=== PATIENT | male | born 1950 | race Caucasian/White ===

== ENCOUNTER → 2016-07-17 | Day surgery (SDC) | payer MEDICARE ==
[~2016-07-17] MED LIST: Lactated Ringers 1,000 ML IV SCH; Propofol 200 MG/20 ML SDV IV ONE
[2016-07-17 10:10] VITALS: BP 109/72
--- NOTE | 2016-07-20 07:17 | OR ---
DATE OF OPERATION: 07/17/2016 PREOPERATIVE DIAGNOSIS: SCREENING COLONOSCOPY. POSTOPERATIVE DIAGNOSIS: SCREENING COLONOSCOPY. SURGEON: Benigno Roberts MD PROCEDURE: FULL-LENGTH COLONOSCOPY. ANESTHESIA: COMMERCIAL PLUMBER. COMPLICATIONS: None. SPECIMEN: None. FINDINGS: Normal full-length colonoscopy. RECOMMENDATIONS: Routine colonoscopy every 5 years as apparently the patient's father had a history of colon cancer. INDICATIONS: The patient never had a prior colonoscopy or a screen. We recommended the procedure given his age. DESCRIPTION OF PROCEDURE: The patient's prepped and draped, placed in the left lateral decubitus position. A lubricated Olympus colonoscope was inserted and safely and easily advanced to the cecum and direct visualization of the ileocecal valve and appendiceal orifice. The bowel prep was excellent. Upon withdrawal of the scope, the entire length of the colon was evaluated thoroughly. There were no signs of any polyps, masses, ulcerations, or bleeding sites. No vascular abnormalities or signs of colitis. No diverticular disease seen. The rectal vault was unremarkable. Retroflexion of the scope showed a lot of perianal hemorrhoidal tissue, but no active bleeding. Air was then suctioned. The scope removed without complication. GABRIELA/GERA /[id number]
== END ==
LOC: CC.SDS 08:22
PROVIDERS: ATTEND Family Medicine
DX: Z12.11 Encounter for screening for malignant neoplasm of colon (principal); I10 Essential (primary) hypertension; Z79.899 Other long term (current) drug therapy
CPT/HCPCS: G0121; J2704; J7120; 00810

== ENCOUNTER → 2018-02-03 | Day surgery (SDC) | payer MEDICARE ==
[~2018-02-03] MED LIST changes: +Bupivacaine 0.25% 10 ML SDV ONE; +Midazolam 1 MG/ML 2 ML SDV IV ONE; +ceFAZolin 1 GM Vial IVPUSH ONE; +fentaNYL 100 MCG/2 ML SDV IV ONE
[2018-02-03 14:42] VITALS: BP 91/63
--- NOTE | 2018-02-03 15:31 | OR ---
DATE OF OPERATION: 02/03/2018 PREOPERATIVE DIAGNOSIS: INFECTED SEBACEOUS CYST, LEFT GROIN. POSTOPERATIVE DIAGNOSIS: INFECTED SEBACEOUS CYST, LEFT GROIN. SURGEON: Ihsan Rubin MD PROCEDURE: WIDE LOCAL EXCISION OF INFECTED SEBACEOUS CYST, LEFT GROIN. ANESTHESIA: Local MAC. SPECIMEN: Cyst. INDICATIONS: This 67-year-old male has a chronically draining cyst in the left groin, was consistent with a sebaceous cyst. However, it is currently mostly drained and would be proper to excise this in total than just incise and drain it. This measures about 1.5 cm in diameter. DESCRIPTION OF PROCEDURE: After adequate preparation, local anesthesia was used to numb the area around the cyst. An elliptical incision was made and carried down through the subcutaneous tissue to completely excise the lateral and deep margins of the cyst. This was completely excised. The wound was then closed with Vicryl for the deep layer and 4-0 Vicryl for the skin. KARLI/GERA /[id number]
== END ==
LOC: CC.SDS 10:56
PROVIDERS: ATTEND Surgery
DX: L72.0 Epidermal cyst (principal); Z87.891 Personal history of nicotine dependence
CPT/HCPCS: J0690; J2250; J2704; J3010; J7120

== ENCOUNTER 2020-10-02 10:17 | Emergency (ER) | payer MEDICARE, OTHER ==
[2020-10-02] MEDS ORDERED: Lidocaine 1% 30 ML SDV INJECT STA (10:27)
[2020-10-02 10:34] VITALS: BP 123/89; PULSE 73
[2020-10-02] MEDS ORDERED: Bacitracin/Neomycin/Polymyxin B Oint 28.4 GM Tube TOP ONE (10:53)
[2020-10-02] MEDS ORDERED: Diphtheria,Pertussis(Acell),Tetanus Vaccine 0.5 ML Syringe IM ONE (10:57)
--- NOTE | 2020-10-02 10:57 | EDM.PDOC ---
ED HPI GENERAL MEDICAL PROBLEM - General Chief Complaint: General Stated Complaint: finger injury Time Seen by Provider: 10/02/20 10:30 Source of Information: Reports: Patient History Limitations: Reports: No Limitations - History of Present Illness INITIAL COMMENTS - FREE TEXT/NARRATIVE: Patient presents today with an injury to his left index finger. [place] his hand pinched [place] 2 [place] of equipment [place]. Admits to good range of motion but has a laceration to the distal tip near the nail bed. Bleeding contained with a bandage. Last tetanus greater than 7 years Onset: Today, Sudden Duration: Hour(s): Location: Reports: Upper Extremity, Left Quality: Reports: Ache Severity: Mild Associated Symptoms: Reports: No Other Symptoms Treatments LABEL STITCHER: Reports: Dressing(s) - Related Data Allergies Allergy/AdvReac Type Severity Reaction Status Date / Time No Known Allergies Allergy Verified 10/02/20 10:18 Home Meds: Home Meds Acetaminophen [Tylenol Arthritis Pain] 2 tab PO DAILY PRN 07/16/16 [History] Lisinopril 20 mg PO DAILY 07/16/16 [History] Lysine HCl [l-Lysine] 1,000 mg PO DAILY 07/16/16 [History] Past Medical History Cardiovascular History: Reports: Hypertension Social & Family History - Family History Family Medical History: No Pertinent Family History - Tobacco Use Tobacco Use Status *Q: Never Tobacco User - Caffeine Use Caffeine Use: Reports: Coffee ED ROS GENERAL - Review of Systems Review Of Systems: Comprehensive ROS is negative, except as noted in HPI. ED EXAM, GENERAL - Physical Exam Exam: See Below Exam Limited By: No Limitations General Appearance: Alert, WD/WN, No Apparent Distress Extremities: Normal Range of Motion Neurological: Alert, Oriented Skin Exam: Wound/Incision ED GENERAL MEDICAL PROCEDURES - Laceration/Wound Repair Left Digit - 3rd (Middle) Lac/wound length in cm: 1.5 Appearance: Superficial, Clean, Other (flap) Distal NVT: Neuro & Vascular Intact Anesthetic Type: Local Local Anesthesia - Lidocaine (Xylocaine): 1% Plain Local Anesthetic Volume: 2cc Skin Prep: Other (radha-clens) Exploration/Debridement/Repair: Wound Explored, Explored to Base Closed with: Sutures Suture Size: 4-0 # of Sutures: 3 Suture Type: Nylon, Interrupted, Simple Sterile Dressing Applied: Nurse Tetanus Status Addressed: Yes Complications: No Course - Vital Signs Last Recorded V/S: Last Vital Signs Temp 97.2 F 10/02/20 10:19 Pulse 73 10/02/20 10:19 Resp 18 10/02/20 10:19 BP 123/89 10/02/20 10:19 Pulse Ox 98 10/02/20 10:19 - Orders/Labs/Meds Orders: Active Orders 24 hr Category Date Time Status Fingers Third Digit Lt F2 [CR] Stat Exams 10/02/20 10:35 Taken Meds: Medications Discontinued Medications Generic Name Dose Route Start Last Admin Trade Name Dana PRN Reason Stop Dose Admin Diphtheria/Tetanus/Acell Pertussis 0.5 ml 10/02/20 10:57 10/02/20 11:05 Diphtheria,Pertussis(Acell),Tetanus Vaccine 0.5 Ml Syringe IM 10/02/20 10:58 0.5 ml .ONCE ONE Administration Lidocaine HCl 5 ml 10/02/20 10:27 10/02/20 10:59 Lidocaine 1% 30 Ml Sdv INJECT 10/02/20 10:28 5 ml NOW STA Administration Lidocaine HCl Confirm 10/02/20 10:19 10/02/20 10:59 Lidocaine 1% 5 Ml Sdv Administered 10/02/20 10:20 Not Given Dose 5 ml .ROUTE .STK-MED ONE Neomycin/Polymyxin/Bacitracin 1 gm 10/02/20 10:53 10/02/20 11:04 Bacitracin/Neomycin/Polymyxin B Oint 28.4 Gm Tube TOP 10/02/20 10:54 1 applic ONETIME ONE Administration Departure - Departure Time of Disposition: 10:55 Disposition: Home, Self-Care 01 Condition: Good Clinical Impression: Laceration of finger Qualifiers: Encounter type: initial encounter Finger: middle finger Damage to nail status: without damage Laterality: left - Discharge Information *PRESCRIPTION DRUG MONITORING PROGRAM REVIEWED*: No *COPY OF PRESCRIPTION DRUG MONITORING REPORT IN PATIENT ALICIA: No Instructions: Laceration Care, Adult Referrals: Benigno Roberts MD [Primary Care Provider] - Forms: ED Department Discharge Additional Instructions: 1. Keep wound clean and dry, covered when at work. After 3 days, may leave open to air while at home 2. Try to keep wound dry to help seal the wound with the steri strips 3. Wound care instructions, watch for any signs of infection 4. Follow up in 10 days for suture removal 5. Call with any questions or concerns. Sepsis Event Note (ED) - Evaluation Sepsis Screening Result: No Definite Risk - Focused Exam Vital Signs: Vital Signs Temp Pulse Resp BP Pulse Ox 10/02/20 10:19 97.2 F 73 18 123/89 98 - My Orders Last 24 Hours: My Active Orders 10/02/20 10:35 Fingers Third Digit Lt F2 [CR] Stat - Assessment/Plan Last 24 Hours: My Active Orders 10/02/20 10:35 Fingers Third Digit Lt F2 [CR] Stat
== END 2020-10-02 11:15 | disposition home or self-care (01) ==
LOC: CC.ED 10:17
DX: S61.213A Laceration without foreign body of left middle finger without damage to nail, initial encounter (principal); I10 Essential (primary) hypertension; Z79.899 Other long term (current) drug therapy; Z23 Encounter for immunization; W23.0XXA Caught, crushed, jammed, or pinched between moving objects, initial encounter
CPT/HCPCS: 12001; 73140-F2; 90471; 90715; 99283; 99283-25; A9270-GY